=== PATIENT | male | born 1945 | race Caucasian/White ===

== ENCOUNTER 2021-11-21 11:03 | Day surgery (SDC) | payer MEDICARE, OTHER ==
[2021-11-20 09:29] LABS: BASOPHILS % (AUTO) 0.4 % (0-1); EOSINOPHILS # (AUTO) 0.1 X10'3 (0-0.9); HEMOGLOBIN 13.4 g/dl (14.0-17.9); LYMPHOCYTES # (AUTO) 1.2 X10'3 (1.1-4.8); LYMPHOCYTES % (AUTO) 23.6 % (21-51); MEAN CORPUSCULAR HGB CONC 32.7 g/dL (33.0-36.5); MEAN CORPUSCULAR VOLUME 88.6 FL (78-98); MEAN PLATELET VOLUME 7.9 FL (7.4-10.4); MONOCYTES # (AUTO) 0.7 X10'3 (0-0.9); NEUTROPHILS # (AUTO) 3.1 X10'3 (1.8-7.7); PLATELET COUNT 185 X10'3 (140-440); RED BLOOD COUNT 4.63 X10'6 (4.70-6.10); RED CELL DISTRIBUTION WIDTH 13.2 % (11.5-14.5)
[2021-11-20 09:40] LABS: ALBUMIN 3.9 G/DL (3.4-5.0); ANION GAP 6 (8-16); BLOOD UREA NITROGEN 23 MG/DL (7-18); BUN/CREATININE RATIO 21.9 (5.4-32.0); CALCIUM 8.8 MG/DL (8.5-10.1); CHLORIDE 109 MMOL/L (99-107); CREATININE 1.05 MG/DL (0.60-1.10); GLUCOSE 110 MG/DL (70-104); POTASSIUM 4.2 MMOL/L (3.5-5.1); SODIUM 144 MMOL/L (135-145); eGFR 69 ML/MIN
[~2021-11-21] VITALS: Ht 182.9 cm; Wt 86.4 kg
[2021-11-21] VITALS (11 sets, daily range): BP systolic 98–123; BP diastolic 58–79
[2021-11-21] MEDS ORDERED: morphine 10mg/ml inj. IV ONE (11:20)
[2021-11-21] MEDS ORDERED: atropine 0.1mg/ml 10ml syringe IV ONE (11:20)
[2021-11-21] MEDS ORDERED: amiodarone 150mg/dext, iso-os 100 ML IV ONE (11:20)
[2021-11-21] MEDS ORDERED: LORazepam 0.5 MG tablet PO ONE (11:20)
[2021-11-21] MEDS ORDERED: diphenhydrAMINE 25mg capsule PO ONE (11:20)
[2021-11-21] MEDS ORDERED: normal saline 1000ml 1,000 ML IV SCH (11:20)
[2021-11-21] MEDS ORDERED: MIDAZolam 1mg/ml 10ml vial IV ONE (11:20)
[2021-11-21] MEDS ORDERED: fentaNYL/PF 50MCG/1 ML 2ML syringe IV ONE (11:20)
[2021-11-21] MEDS ORDERED: ATOR20TA66 PO (11:38)
[2021-11-21] MEDS ORDERED: WARF10TA45 PO (11:38)
[2021-11-21] MEDS ORDERED: SOTA80TA PO (11:38)
[2021-11-21] MEDS ORDERED: LISI5TAB22 PO (11:38)
[2021-11-21] MEDS ORDERED: Saw Palmetto PO (11:41)
[2021-11-21] MEDS ORDERED: CHOL100046 PO (11:41)
== END 2021-11-21 16:41 | disposition home or self-care (01) ==
LOC: SSTAY O 11:03
PROVIDERS: ATTEND Internal Medicine Cardiovascular Disease
DX: I48.19 Other persistent atrial fibrillation (principal); I10 Essential (primary) hypertension; I25.10 Atherosclerotic heart disease of native coronary artery without angina pectoris; Z95.2 Presence of prosthetic heart valve; Z79.899 Other long term (current) drug therapy; Z79.01 Long term (current) use of anticoagulants; Z88.0 Allergy status to penicillin; Z88.2 Allergy status to sulfonamides
CPT/HCPCS: 36415; 80048; 85025; 85610; 92960; 93005; 94799; J2250; J2274; J7030; Q0163

== ENCOUNTER 2022-09-15 07:13 | Day surgery (SDC) | payer MEDICARE, OTHER ==
[2022-09-14 15:29] LABS: BASOPHILS % (AUTO) 0.4 % (0-1); EOSINOPHILS % (AUTO) 0.5 % (0-6); HEMATOCRIT 40.8 % (42.0-52.0); HEMOGLOBIN 13.6 g/dl (14.0-17.9); LYMPHOCYTES # (AUTO) 1.6 X10'3 (1.1-4.8); LYMPHOCYTES % (AUTO) 23.9 % (21-51); MEAN CORPUSCULAR HEMOGLOBIN 29.6 PG (27.0-31.0); MEAN CORPUSCULAR HGB CONC 33.3 g/dL (33.0-36.5); MEAN CORPUSCULAR VOLUME 88.9 FL (78-98); MEAN PLATELET VOLUME 8.4 FL (7.4-10.4); MONOCYTES # (AUTO) 0.8 X10'3 (0-0.9); MONOCYTES % (AUTO) 12.6 % (2-12); NEUTROPHILS # (AUTO) 4.1 X10'3 (1.8-7.7); NEUTROPHILS % (AUTO) 62.6 % (42-75); PLATELET COUNT 183 X10'3 (140-440); RED BLOOD COUNT 4.59 X10'6 (4.70-6.10); RED CELL DISTRIBUTION WIDTH 13.5 % (11.5-14.5); WHITE BLOOD COUNT 6.5 X10'3 (4.5-11.0)
[2022-09-14 15:31] LABS: ALBUMIN 4.1 G/DL (3.4-5.0); ANION GAP 5 (8-16); BLOOD UREA NITROGEN 22 MG/DL (7-18); BUN/CREATININE RATIO 19.1 (10.0-20.0); CALCIUM 9.4 MG/DL (8.5-10.1); CHLORIDE 106 MMOL/L (99-107); CREATININE 1.15 MG/DL (0.60-1.10); GLUCOSE 95 MG/DL (70-104); POTASSIUM 4.3 MMOL/L (3.5-5.1); SODIUM 143 MMOL/L (135-145); TOTAL CARBON DIOXIDE 32.3 MMOL/L (24-32); eGFR 62 ML/MIN
[2022-09-15] VITALS (12 sets, daily range): BP systolic 102–142; BP diastolic 62–105
[~2022-09-15] VITALS: Ht 182.9 cm; Wt 87.2 kg
[~2022-09-15 07:13] MED LIST: ATOR20TA66 PO; CHOL100046 PO; LISI5TAB22 PO; SOTA80TA PO; Saw Palmetto PO; WARF10TA45 PO
[2022-09-15] MEDS ORDERED: diphenhydrAMINE 25mg capsule PO ONE (07:25)
[2022-09-15] MEDS ORDERED: MIDAZolam 1mg/ml 10ml vial IV ONE (07:25)
[2022-09-15] MEDS ORDERED: amiodarone 150mg/dext, iso-os 100 ML IV ONE (07:25)
[2022-09-15] MEDS ORDERED: LORazepam 0.5 MG tablet PO ONE (07:25)
[2022-09-15] MEDS ORDERED: morphine 10mg/ml inj. IV ONE (07:25)
[2022-09-15] MEDS ORDERED: atropine 0.1mg/ml 10ml syringe IV ONE (07:25)
[2022-09-15] MEDS ORDERED: normal saline 1000ml 1,000 ML IV SCH (07:25)
[2022-09-15] MEDS ORDERED: MAGN200T PO (07:30)
== END 2022-09-15 12:40 | disposition home or self-care (01) ==
LOC: SSTAY O 07:13
PROVIDERS: ATTEND Internal Medicine Cardiovascular Disease
DX: I48.0 Paroxysmal atrial fibrillation (principal); I48.92 Unspecified atrial flutter; I08.1 Rheumatic disorders of both mitral and tricuspid valves; I10 Essential (primary) hypertension; E78.5 Hyperlipidemia, unspecified; I25.119 Atherosclerotic heart disease of native coronary artery with unspecified angina pectoris; Z79.01 Long term (current) use of anticoagulants; Z79.899 Other long term (current) drug therapy; Z98.1 Arthrodesis status; Z95.2 Presence of prosthetic heart valve; Z88.0 Allergy status to penicillin; Z88.2 Allergy status to sulfonamides; Z87.891 Personal history of nicotine dependence; Z80.9 Family history of malignant neoplasm, unspecified
CPT/HCPCS: 36415; 80048; 85025; 85610; 92960; 93005; J2250; J2274; J7030; Q0163; A4620

== ENCOUNTER 2024-06-28 06:12 | Day surgery (SDC) | payer MEDICARE, OTHER ==
[2024-06-27 09:54] LABS: BASOPHILS % (AUTO) 0.5 % (0-1); EOSINOPHILS # (AUTO) 0.1 X10'3 (0-0.9); EOSINOPHILS % (AUTO) 1.6 % (0-6); HEMATOCRIT 37.7 % (42.0-52.0); LYMPHOCYTES # (AUTO) 0.9 X10'3 (1.1-4.8); LYMPHOCYTES % (AUTO) 23.3 % (21-51); MEAN CORPUSCULAR HEMOGLOBIN 30.9 PG (27.0-31.0); MEAN CORPUSCULAR HGB CONC 34.5 g/dL (33.0-36.5); MEAN CORPUSCULAR VOLUME 89.5 FL (78-98); MEAN PLATELET VOLUME 7.3 FL (7.4-10.4); MONOCYTES # (AUTO) 0.5 X10'3 (0-0.9); MONOCYTES % (AUTO) 14.3 % (2-12); NEUTROPHILS # (AUTO) 2.3 X10'3 (1.8-7.7); NEUTROPHILS % (AUTO) 60.3 % (42-75); PLATELET COUNT 195 X10'3 (140-440); RED BLOOD COUNT 4.21 X10'6 (4.70-6.10); WHITE BLOOD COUNT 3.7 X10'3 (4.5-11.0)
[2024-06-27 10:04] LABS: ALBUMIN 3.6 G/DL (3.4-5.0); ANION GAP 8 (8-16); BLOOD UREA NITROGEN 21 MG/DL (7-18); BUN/CREATININE RATIO 22.1 (10.0-20.0); CALCIUM 8.7 MG/DL (8.5-10.1); CHLORIDE 107 MMOL/L (99-107); CREATININE 0.95 MG/DL (0.60-1.10); GLUCOSE 104 MG/DL (70-104); POTASSIUM 4.4 MMOL/L (3.5-5.1); SODIUM 143 MMOL/L (135-145); TOTAL CARBON DIOXIDE 27.7 MMOL/L (24-32); eGFR 77 ML/MIN
[2024-06-27 10:05] LABS: APTT 26 SECONDS (22-32); INR 1.1 INR; PROTHROMBIN TIME 11.6 SECONDS (9.0-12.0)
[2024-06-28] VITALS (13 sets, daily range): BP systolic 106–133; BP diastolic 61–90; PULSE 62–87; RESP 10–17; TEMP 97.6; O2SAT 95–99
[~2024-06-28] VITALS: Ht 182.9 cm; Wt 91.2 kg
[~2024-06-28 06:12] MED LIST changes: +MAGN200T PO; -Saw Palmetto PO
[2024-06-28] MEDS ORDERED: midazolam 1 mg/ML 2ml injection ONE (07:30)
[2024-06-28] MEDS ORDERED: LIDOcaine 1% W/epiNEPHrine 1:100,000 20ml vial ONE (07:30)
[2024-06-28] MEDS ORDERED: vancomycin 1,000mg inj ONE (07:30)
[2024-06-28] MEDS ORDERED: fentaNYL/PF 50MCG/1 ML 2ML syringe ONE (07:30)
[2024-06-28] MEDS ORDERED: iohexol 350 MG/ML 50ML vial IV ONE (07:34)
[2024-06-28] MEDS: clindamycin-Cleocin 900mg/D5W 50 ML IV ONE (08:30)
[2024-06-28] MEDS ORDERED: diphenhydrAMINE 50 mg/ml inj ONE (08:37)
[2024-06-28] MEDS ORDERED: HYDROcodone/acetaminophen 10/325mg tab PO PRN (10:00)
[2024-06-28] MEDS ORDERED: CLIN300C54 PO (10:38)
[2024-06-28] MEDS: HYDROcodone/acetaminophen 5mg/325mg tablet PO PRN (11:10)
[2024-06-28] MEDS: normal saline 1000ml 1,000 ML IV SCH (11:10)
[2024-06-28] MEDS: vancomycin/NS 1 GM ADD-VANTAGE 250 ML X 1 DOSE IV ONE (11:10)
== END 2024-06-28 14:05 | disposition home or self-care (01) ==
LOC: SSTAY O 06:12
PROVIDERS: ATTEND Internal Medicine Cardiovascular Disease
DX: I49.5 Sick sinus syndrome (principal); I48.0 Paroxysmal atrial fibrillation; I10 Essential (primary) hypertension; I25.119 Atherosclerotic heart disease of native coronary artery with unspecified angina pectoris; I36.1 Nonrheumatic tricuspid (valve) insufficiency; I37.1 Nonrheumatic pulmonary valve insufficiency; I71.21 Aneurysm of the ascending aorta, without rupture; I48.92 Unspecified atrial flutter; I34.9 Nonrheumatic mitral valve disorder, unspecified; E78.5 Hyperlipidemia, unspecified; Z98.890 Other specified postprocedural states; Z79.01 Long term (current) use of anticoagulants; Z79.899 Other long term (current) drug therapy; Z80.8 Family history of malignant neoplasm of other organs or systems
CPT/HCPCS: 33208; 36415; 71046; 80048; 85025; 85610; 85730; 93005; 99152; 99153; A4565; A6402; C1785; C1898; J1200; J2250; J3010; J3370; J3490; J7030; Q9967; Z7610; A6449